=== PATIENT | female | born 1950 | race Hispanic/Latino ===

== ENCOUNTER 2019-01-27 09:40 | Observation (INO) | payer MEDICARE ==
[2019-01-27 11:08] LABS: Basophils # (Auto) 0.1 K/mm3 (0.0-0.1); Basophils % (Auto) 0.8 % (0.0-1.8); Eosinophils # (Auto) 0.2 K/mm3 (0.0-0.4); Eosinophils % (Auto) 2.2 % (0.0-4.3); Hematocrit 32.6 % (30.3-42.9); Hemoglobin 10.8 gm/dl (10.1-14.3); Lymphocytes # (Auto) 2.2 K/mm3 (1.2-5.4); Lymphocytes % (Auto) 25.8 % (13.4-35.0); Mean Corpuscular HGB Conc 33 % (30-34); Mean Corpuscular Volume 91 fl (79-97); Monocytes # (Auto) 0.6 K/mm3 (0.0-0.8); Monocytes % (Auto) 7.3 % (0.0-7.3); Platelet Count 326 K/mm3 (140-440); Red Blood Count 3.58 M/mm3 (3.65-5.03); Red Cell Distribution Width 13.1 % (13.2-15.2)
[2019-01-27 11:23] LABS: INR 0.93 (0.87-1.13)
[2019-01-27 11:24] LABS: Partial Thromboplastin Time 23.4 Sec. (24.2-36.6)
[2019-01-27 11:29] LABS: BUN/Creatinine Ratio 15; Blood Urea Nitrogen 12 mg/dL (7-17); Calcium 8.9 mg/dL (8.4-10.2); Hemolysis Index 13
[2019-01-27] MEDS ORDERED: ceFAZolin 2 GM in NACL 0.9% 100 ML IV NR (12:00)
[2019-01-27] MEDS ORDERED: NACL 0.9% 1,000 ML, .VANCOMYCIN VIAL 1,000 MG IR NR (12:00)
[2019-01-27] MEDS: NACL 0.9% 1000 ML 1,000 ML IV SCH ×2 (12:29→18:49)
[2019-01-27] MEDS ORDERED: XYLOCAINE 1% 20 mL ONE (13:31)
[2019-01-27] MEDS ORDERED: NACL 0.9% 500 ML IR ONE (13:31)
[2019-01-27] MEDS ORDERED: XYLOCAINE MPF 2% ONE (13:31)
[2019-01-27] MEDS ORDERED: MARCAINE 0.5% INFILTRATI ONE (13:32)
[2019-01-27] MEDS ORDERED: ANCEF/STERILE WATER 2 GM/20 ML 0 GM/0 ML SYRINGE IV ONE (13:32)
[2019-01-27] MEDS ORDERED: DIPRIVAN 10 MG/ML IV ONE (13:32)
[2019-01-27] MEDS ORDERED: VERSED ONE ×3 (13:37→15:28)
[2019-01-27] MEDS ORDERED: SUBLIMAZE ONE (13:38)
[2019-01-27] MEDS ORDERED: DIPRIVAN 10 MG/ML 0 MG/0 ML BOTTLE IV ONE (13:41)
[2019-01-27] MEDS ORDERED: .VANCOMYCIN VIAL 1,000 MG in NACL 0.9% 1,000 ML IRRIGATION ONE (14:51)
[2019-01-27] MEDS: CARDIZEM ONE ×2 (15:36→15:49)
[2019-01-27] MEDS ORDERED: DIPRIVAN 10 MG/ML 1,000 MG/100 ML BOTTLE IV ONE (15:57)
[2019-01-27] MEDS: NORCO 5/325 PO PRN ×2 (17:08→22:41)
[2019-01-27] MEDS ORDERED: NORCO 5/325 ONE (17:08)
--- NOTE | 2019-01-27 18:36 | XRay Report ---
CHEST 1 VIEW INDICATION / CLINICAL INFORMATION: Pacemaker Postop. COMPARISON: None available. FINDINGS: SUPPORT DEVICES: Cardiac pacemaker device is present without visible abnormality. HEART / MEDIASTINUM: No significant abnormality. LUNGS / PLEURA: Borderline interstitial pulmonary edema. The lungs are grossly clear otherwise. No pn eumothorax. ADDITIONAL FINDINGS: Mild elevation of the right hemidiaphragm, presumably chronic. IMPRESSION: 1. No evidence of complication following pacemaker placement. 2. Borderline interstitial pulmonary edema. Signer Name: Ashlee Chen MD Signed: 01/27/2019 6:31 PM Workstation Name: [id number]
[2019-01-27] MEDS: ANCEF/NS 1 GM/50 ML 1 GM/50 ML BAG IV SCH (20:07)
[2019-01-27] MEDS ORDERED: SINEquan PO SCH (22:00)
[2019-01-28] MEDS: ANCEF/NS 1 GM/50 ML 1 GM/50 ML BAG IV SCH (03:13)
[2019-01-28] MEDS: NORCO 5/325 PO PRN ×2 (05:28→11:37)
[2019-01-28 07:32] VITALS: BP 144/80
--- NOTE | 2019-01-28 10:17 | Short Stay Summary ---
Short Stay Documentation Date of service: 01/28/19 - History H&P: obtained from office - Allergies and Medications Current Medications: Allergies No Known Allergies Allergy (Verified 11/09/14 06:51) Home Medications Medication Instructions Recorded Confirmed Last Taken Type ALPRAZolam [Xanax TAB] 0.5 mg PO PRN PRN 01/27/19 01/27/19 01/26/19 History Apixaban [Eliquis] 5 mg PO BID 01/27/19 01/27/19 01/24/19 History Apixaban [Eliquis] 5 mg PO BID 01/27/19 01/27/19 01/24/19 History 5mg Atenolol [Tenormin] 25 mg PO DAILY 01/27/19 01/27/19 01/26/19 History Brexpiprazole [Rexulti] 1 mg PO DAILY 01/27/19 01/27/19 01/26/19 History Ca/D3/Mag Ox/Zinc/Emergency Care Attendant/Tang/Bor 1 each PO DAILY 01/27/19 01/27/19 01/26/19 History [Calcium 600+D3 Plus Caplet] Citalopram [celeXA] 40 mg PO QDAY 01/27/19 01/27/19 01/26/19 History Citalopram [celeXA] 40 mg PO QDAY 01/27/19 01/27/19 01/26/19 History Doxepin [SINEquan] 75 mg PO DAILY 01/27/19 01/27/19 01/26/19 History Pantoprazole [Protonix] 40 mg PO QDAY 01/27/19 01/27/19 01/26/19 History amLODIPine [Norvasc] 5 mg PO DAILY 01/27/19 01/27/19 01/26/19 History hydroCHLOROthiazide 25 mg PO DAILY 01/27/19 01/27/19 01/26/19 History [Hydrochlorothiazide] tiZANidine [Zanaflex 4mg TAB] 4 mg PO PRN PRN 01/27/19 01/27/19 2 Days Ago History ~01/25/19 Active Medications Acetaminophen/Hydrocodone Bitart ([place] 5/325) 1 each PO Q6H PRN PRN Reason: Pain, Moderate (4-6) Last Admin: 01/28/19 05:28 Dose: 1 each Documented by: Doxepin HCl (Sinequan) 75 mg PO QHS [facility] Last Admin: 01/27/19 22:38 Dose: 75 mg Documented by: Sodium Chloride (Nacl 0.9% 1000 Ml) 1,000 mls @ 42 mls/hr IV DIRECT [facility] Last Admin: 01/27/19 18:49 Dose: 42 mls/hr Documented by: - Physical exam General appearance: no acute distress Integumentary: no rash, no growths, no abnormal pigmentation, other (left pectoralis PPM implantation site pressure dressing removed, site covered with telfa and tegaderm dressing, telfa with some old bleeding noted, no active bleeding or hematoma noted, left arm immobilizer in place) HEENT: Atraumatic, PERRLA Lungs: Clear to auscultation Heart: Regular rate, Normal S1, Normal S2 Gastrointestinal: normal Extremities: no ischemia, pulses intact Neurological: Normal gait, Normal speech, Strength at 5/5 X4 ext - Brief post op/procedure progress note Date of procedure: 01/27/19 Pre-op diagnosis: SSS Post-op diagnosis: same Procedure: PPM implantation - see operative report Estimated blood loss: none Condition: stable - Hospital course Hospital course: Pt presented for scheduled elective PPM implantation and subsequently underwent implantation. She was admitted for observation overnight. She remained clinically and hemodynamically stable throughout admission and is medically stable for discharge home today. PPM interrogation this AM showed normal device function, post-PPM implantation CXR with NAF, no pneumothorax. - Disposition Condition at discharge: Good Disposition: DC-01 TO HOME OR SELFCARE - Discharge Diagnoses (1) Cardiac pacemaker in situ Status: Chronic (2) Sick sinus syndrome Status: Chronic (3) Paroxysmal atrial fibrillation Status: Chronic (4) HTN (hypertension) Status: Chronic Short Stay Discharge Plan Activity: other (as per discharge instructions) Wound: per your surgeon's advice, other (as per discharge instructions) Follow up with: DEJUAN GALAVIZ NP [Primary Care Provider] - 7 Days BURAK BAILEY MD [Staff Physician] - 7 Days (post-op device clinic, [place] office, 02/06/2019 @ 11:00AM) DARIO YOUNG MD [Staff Physician] - 7 Days ([place] office, 02/17/2019 @ 2:45PM) Prescriptions: HYDROcodone/APAP 5-325 [[place] 5-325 mg TAB] 1 each PO Q6H PRN #10 tablet PRN Reason: Pain, Moderate (4-6)
--- NOTE | 2019-01-29 08:41 | Anesthesia Consultation ---
Anesthesia Consult and Med Hx Date of service: 01/29/19 - Airway Anesthetic Teeth Evaluation: Good ROM Head & Neck: Adequate Mental/Hyoid Distance: Adequate Mallampati Class: Class II Intubation Access Assessment: Good - Pulmonary Exam CTA: Yes - Cardiac Exam Cardiac Exam: RRR - Pre-Operative Health Status ASA Pre-Surgery Classification: ASA3 Proposed Anesthetic Plan: MAC - Pulmonary Hx Smoking: Yes Hx Asthma: Yes Hx Pneumonia: Yes (in past) Hx Sleep Apnea: Yes - Cardiovascular System Hx Hypertension: Yes Hx Angina: No Hx Percutaneous Transluminal Coronary Angioplasty (PTCA): No Hx Cardia Arrhythmia: No Hx Pacemaker: No Hx Internal Defibrillator: No Hx Valvular Heart Disease: No Hx Heart Murmur: No Hx Peripheral Vascular Disease: No - Central Nervous System Hx Neuromuscular Disorder: No Hx Seizures: No CVA: No Hx Back Pain: No Hx Psychiatric Problems: Yes - Gastrointestinal Hx Ulcer: No Hx Gastroesophageal Reflux Disease: Yes - Endocrine Hx Renal Disease: No Hx End Stage Renal Disease: No Hx Cirrhosis: No Hx Liver Disease: No Hx Insulin Dependent Diabetes: Yes Hx Non-Insulin Dependent Diabetes: No - Hematic Hx Anemia: Yes Hx Sickle Cell Disease: No - Other Systems Hx Alcohol Use: No Hx Substance Use: No Hx Cancer: No Hx Obesity: No
--- NOTE | 2019-01-29 08:41 | Anesthesia Day of Surgery ---
Anesthesia Day of Surgery - Day of Surgery Patient Examined: Yes Patient H&P Reviewed: Yes Patient is NPO: Yes
--- NOTE | 2019-01-29 08:42 | Post Anesthesia Evaluation ---
- Post Anesthesia Evaluation Patient Participated: Yes Airway Patent: Yes Stable Respiratory Function: Yes Nausea/Vomiting: No Temp > 96.8F: Yes Pain Manageable: Yes Adequeate Hydration: Yes Anesthesia Complications: No Block Receding Appropriately: Not Applicable Patient on Ventilator: No
== END 2019-01-28 14:00 | disposition home or self-care (01) ==
LOC: CATHLABREC 09:40 → 4A 13:06
PROVIDERS: ADMIT Internal Medicine Cardiovascular Disease; ATTEND Internal Medicine Cardiovascular Disease
DX: I49.5 Sick sinus syndrome (principal); I48.0 Paroxysmal atrial fibrillation; I10 Essential (primary) hypertension
CPT/HCPCS: 33208; 36415; 71045; 80048; 85025; 85610; 85730; 87116; 93005; 93010; 96365; 96366; C1779; C1785; C1892; G0378; J0153; J0690; J2250; J2704; J3010; J3370; J7030; Q9967